=== PATIENT | female | born 1985 | race Caucasian/White ===

== ENCOUNTER 2018-12-23 22:35 | Emergency (ER) | payer MEDICAID ==
[~2018-12-23] VITALS: Ht 165.1 cm; Wt 66.3 kg
[2018-12-23 22:38] VITALS: BP 138/58; PULSE 70; RESP 19; Ht 165.1 cm; Wt 66.3 kg
--- NOTE | 2018-12-24 02:43 | ERD ---
ER Documentation Chief Complaint Chief Complaint SORE THROAT PAIN, NO COUGH [id number] HPI This is a 33-year-old female who presents emergency department with complaints of throat pain for about 3 days. LMP: 2 days ago. with 2 ectopic pregnancies. Denies headache, head injury, loss of consciousness, dizziness, neck pain, neck stiffness, throat pain, difficulty swallowing, difficulty breathing lying flat, shoulder pain, chest pain, back pain, abdominal pain, nausea, vomiting, constipation, diarrhea, urinary symptoms, or possibility being , loss of bowel and bladder control, trauma, injury, falls, difficulty walking due to pain, numbness or tingling sensation, calf pain, recent travel, recent major surgery in the last 3 weeks, calf pain, recent long travel, recent exposure to any illness, recent antibiotic use in the last 3 months, fever, chills, seizures. Past medical history: Denies. Surgical history: Denies. Social: Denies smoking, use of alcoholic beverages, use of illegal drugs. ROS All systems reviewed and are negative except as per history of present illness. Medications Home Meds Active Scripts Prednisone* (Prednisone*) 20 Mg Tab, 40 MG PO DAILY for 4 Days, TAB Prov:GHULAMILATHANH NAPIER F 12/24/18 Diphenhydramine Hcl* (Benadryl*) 25 Mg Cap, 25 MG PO Q6 PRN for ITCHING/RASH, #30 TAB Prov:PASILABANTHANH F 12/24/18 Loratadine* (Loratadine*) 10 Mg Tablet, 10 MG PO DAILY, #30 TAB Prov:GHULAMILATHANH NAPIER 12/24/18 Ondansetron Hcl* (Zofran*) 4 Mg Tablet, 4 MG PO Q8H PRN for NAUSEA AND/OR VOMITING, #30 TAB Prov:GHULAMILATHANH NAPIER F 12/24/18 Ibuprofen* (Motrin*) 600 Mg Tab, 600 MG PO Q6H PRN for PAIN AND OR ELEVATED TEMP, #30 TAB Prov:PASILATHANH NAPIER F 12/24/18 Amoxicillin* (Amoxicillin*) 500 Mg Cap, 500 MG PO TID for 7 Days, CAP Prov:PASILABANNIAAR F 12/24/18 Allergies Allergies: Coded Allergies: No Known Allergy (Unverified , 12/24/18) PMhx/Soc Medical and Surgical Hx: pt denies Medical Hx, pt denies Surgical Hx History of Surgery: No Anesthesia Reaction: No Hx Neurological Disorder: No Hx Respiratory Disorders: No Hx Cardiac Disorders: No Hx Psychiatric Problems: No Hx Miscellaneous Medical Probl: No Hx Alcohol Use: No Hx Substance Use: No Hx Tobacco Use: No Smoking Status: Never smoker Physical Exam Vitals Vital Signs Date Temp Pulse Resp B/P (MAP) Pulse Ox O2 O2 Flow FiO2 Time Delivery Rate 12/23/18 98.7 70 19 138/58 100 22:38 (84) Physical Exam Const: No acute distress Head: Atraumatic Eyes: Normal Conjunctiva ENT: Normal External Ears, Nose and Mouth. Throat: Uvula is in midline and non-displaced. Redness noted to pharynx. Neck: Full range of motion. No meningismus. No nuchal rigidity. No signs of meningeal irritation. Resp: Clear to auscultation bilaterally Cardio: Regular rate and rhythm, no murmurs Abd: Soft, non tender, non distended. Normal bowel sounds. Skin: No petechiae or rashes Back: No midline or flank tenderness Ext: No cyanosis, or edema Neur: Awake and alert. No neurological deficits. Psych: Normal Mood and Affect Procedures/MDM Diagnostic tests: Clinica exam. Treatment: NA. Re-evaluation: NA. Differential diagnosis I have low suspicion for sepsis, meningitis, peritonsillar abscess. Final diagnosis: Pharyngitis. Allergic rhinitis. Prescription: Amoxicillin. Motrin. Zofran. Prednisone. Claritin. Follow-up with PCP in the next 24-48 hours. Come back here in the emergency department for any new symptoms or any worsening symptoms. All questions and concerns were answered. Patient and family members verbalized understanding and agreed with plan of care. Hemodynamically stable on discharge. Departure Diagnosis: Primary Impression: Pharyngitis Additional Impressions: Allergic rhinitis Allergic symptoms Condition: Stable Additional Instructions: Follow-up with PCP in the next 24-48 hours. Come back here in the emergency department for any new symptoms or any worsening symptoms. THANH TORREZ Dec 24, 2018 02:43
[2018-12-24] MEDS ORDERED: IBUP-1542 PO (02:45)
[2018-12-24] MEDS ORDERED: ONDA4TAB8 PO (02:45)
[2018-12-24] MEDS ORDERED: AMOX500C2 PO (02:45)
[2018-12-24] MEDS ORDERED: LORA10TA3 PO (02:45)
[2018-12-24] MEDS ORDERED: BEN25 PO (02:46)
[2018-12-24] MEDS ORDERED: PRED20TA PO (02:46)
== END 2018-12-24 02:55 | disposition home or self-care (01) ==
LOC: FTE 22:35
DX: J02.9 Acute pharyngitis, unspecified (principal); J30.9 Allergic rhinitis, unspecified
CPT/HCPCS: 99283